=== PATIENT | male | born 1995 | race Caucasian/White ===

== ENCOUNTER → 2021-08-03 | Outpatient (CLI) | payer OTHER ==
[~2021-08-03] MED LIST: ANUSOL HC SUPP1 SUPP PR; PROTONIX40 MG PO; ZOFRAN4 MG PO
[2021-08-06 12:13] LABS: ENDOMYSIAL ANTIBODY IGA Negative (Negative); IMMUNOGLOBULIN A, QN, SERUM 184 mg/dL (90-386); T-TRANSGLUTAMINASE (TTG) IGA <2 U/mL (0-3)
== END ==
LOC: LAB 16:04
PROVIDERS: Internal Medicine Gastroenterology
DX: R19.7 Diarrhea, unspecified (principal)
CPT/HCPCS: 36415; 82784; 83993

== ENCOUNTER → 2022-02-03 | Outpatient (CLI) | payer OTHER ==
[2022-02-03 16:18] LABS: BUN/CREATININE RATIO 13 (0-10)
[2022-02-04 08:16] LABS: HCV AB 0.1 (0.0-0.9)
[2022-02-04 09:16] LABS: ALPHA-1-ANTITRYPSIN, SERUM 235 mg/dL (95-164)
[2022-02-04 16:10] LABS: ACTIN (SMOOTH MUSCLE) ANTIBODY 8 Units (0-19); MITOCHONDRIAL (M2) ANTIBODY <20.0 Units (0.0-20.0)
[2022-02-04 20:11] LABS: HEPATITIS C QUANTITATION HCV Not Detected IU/mL (.)
[2022-02-06 06:55] LABS: HBSAG SCREEN Negative (Negative); HEP B CORE AB, TOT Negative (Negative)
[2022-02-06 08:10] LABS: ALT (SGPT) P5P 54 IU/L (0-55); APOLIPOPROTEIN A-1 85 mg/dL (101-178); AST (SGOT) P5P 46 IU/L (0-40); BILIRUBIN, TOTAL 0.4 mg/dL (0.0-1.2); CHOLESTEROL, TOTAL 172 mg/dL (100-199); FIBROSIS SCORE 0.33 (0.00-0.21); FIBROSIS STAGE F1-F2 (.); GGT 53 IU/L (0-65); GLUCOSE, SERUM 107 mg/dL (65-99); HAPTOGLOBIN 57 mg/dL (17-317); HEIGHT: 61 in (.); TRIGLYCERIDES 214 mg/dL (0-149); WEIGHT: 218 LBS (.)
== END ==
LOC: LAB 15:06
PROVIDERS: Physician Assistant
DX: K76.0 Fatty (change of) liver, not elsewhere classified (principal)
CPT/HCPCS: 36415; 80053; 82103; 82172; 82247; 82465; 82728; 82947; 82977; 83010; 83516; 83540; 83550; 83883; 84450; 84460; 84478; 86704; 86705; 86706; 86708; 86709; 86803; 87340; 87522

== ENCOUNTER → 2022-02-09 | Outpatient (CLI) | payer OTHER | LOC: US 10:00 | DX: K76.0 Fatty (change of) liver, not elsewhere classified (principal) | CPT/HCPCS: 76705 ==

== ENCOUNTER 2022-02-25 18:00 | Emergency (ER) | payer OTHER ==
[2022-02-25] MEDS ORDERED: CYCLOBENZAPRINE10 MG PO (22:36)
[2022-02-25] MEDS ORDERED: NAPROSYN500 MG PO (22:36)
== END 2022-02-25 23:05 | disposition home or self-care (01) ==
LOC: ER1 18:00
DX: M25.78 Osteophyte, vertebrae (principal); G95.29 Other cord compression; X58.XXXA Exposure to other specified factors, initial encounter; Y93.56 Activity, jumping rope
CPT/HCPCS: 72131; 81001; 96372; 99284; J1100; J1885